=== PATIENT | male | born 2000 | race Caucasian/White ===

== ENCOUNTER 2025-09-10 12:42 | Emergency (ER) | payer BC, SELFPAY ==
[2025-09-10 12:42] VITALS: BMI 27.4
[2025-09-10 12:44] VITALS: BP 150/79
[2025-09-10 12:57] LABS: Hematocrit 39.4 % (39.0-52.0); Hemoglobin 13.7 g/dL (13.0-18.0); Mean Corp Hgb Conc. 34.8 g/dL (33.0-37.0); Mean Corpuscular Volume 86.0 fL (80.0-94.0); Nucleated Red Blood Cells % 0 % (-); Platelet Count 252 10^3/uL (130-400); Red Cell Dist. Width 11.9 % (11.5-14.5)
[2025-09-10 13:17] LABS: ALT (SGPT) 17 U/L (0-50); AST (SGOT) 20 U/L (17-59); Albumin 4.9 g/dl (3.5-5.0); Alkaline Phosphatase 46 U/L (38-126); Blood Urea Nitrogen 17 mg/dl (9-20); Calcium 9.4 mg/dl (8.4-10.2); Carbon Dioxide 23 mmol/L (22-30); Chloride 105 mmol/L (98-107); Glucose 94 mg/dl (70-99); Potassium 4.5 mmol/L (3.5-5.1); Sodium 138 mmol/L (135-145); Total Protein 8.1 g/dl (6.3-8.2); eGFR > 60.00
--- NOTE | 2025-09-10 13:38 | ED.GENMED ---
History of Present Illness
General
Chief Complaint: Skin Problem
Source: patient
Exam Limitations: none
Time Seen by Provider: 09/10/25 13:09
Nursing documentation reviewed up to this point in time: agreed with
History of Present Illness
History of Present Illness:
25-year-old male history of Crohn's previously treated at [facility] now [facility] he is on a biologic
Pain in his left buttock, for few days saw his GI doctor started on Augmentin
Given a prescription to get a CAT scan, which he has been unable to get scheduled symptoms are actually improving with the Augmentin, having mild pain, no drainage no fever no anterior abdominal pain has had what sounds like an abscess when he was a
child ultimately led to him being diagnosed with Crohn's at [facility]
Past History
Past History
ED Past Medical History: Other (Crohn's)
ED Past Surgical History: Other (Rectal abscess drain)
Social History
Tobacco: Non-smoker
Alcohol: None
Drug: None
Living: with family
Employment: Employed
Review of Systems
Review of Systems
All Other Systems: Not applicable
Constitutional: Denies fever or fatigue
Respiratory: Reports no symptoms
Cardiac: Reports no symptoms
ABD/GI: Denies abdominal pain, bloody stools or black stools
: Reports no symptoms
Hematologic/Lymphatic: Reports no symptoms
Psychiatric: Reports no symptoms
Phy Exam
Physical Exam
Physical Exam:
Physical Exam
General: no apparent distress, not acutely ill
Neck: No jaundice
Heart: s1/s2 regular rate and rhythm, no murmur. equal radial pulses.
Lungs: no acute respiratory distress. clear bilaterally
Abdomen: Soft nontender
Buttock: Quarter size area of mild tenderness and induration on the left buttock not involving the anus
Neuro: alert and oriented. no focal neurological deficits
Skin: no rash
Psychiatric: well kept. interactive and cooperative
Extremities: no edema.
Course
Orders/Labs/Results
Orders:
Orders
09/10/25 12:50
CMP [Comprehensive Metabolic Panel] Urgent
Complete Blood Count/With Diff Urgent
09/10/25 13:29
CT Abd/Pel (IV only)-DH only Urgent
Comment:
Reason For Exam: abscess left buttock IBD
Abnormal Lab Results
09/10/25
12:50
RBC 4.58 L 10^6/uL
(4.70-6.10)
09/10/25 12:50
09/10/25 12:50
Vital Signs
Initial and Last Documented VS:
Initial Vital Signs
Temp Pulse Resp BP Pulse Ox
98.5 F 94 18 150/79 99
09/10/25 12:44 09/10/25 12:44 09/10/25 12:44 09/10/25 12:44 09/10/25 12:44
Last Documented Vital Signs
Temp Pulse Resp BP Pulse Ox
98.5 F 94 18 150/79 99
09/10/25 12:44 09/10/25 12:44 09/10/25 12:44 09/10/25 12:44 09/10/25 13:41
MDM/Problems Addressed
Differential Diagnosis Includes:
Abscess fistula Crohn's
MDM/Problems Addressed:
Rectal abscess
Chronic conditions affecting care:
Crohn
Acute Exacerbation and/or Progression of Chronic Illness:
Crohn's
*Radiology
Radiology exam reviewed: radiology read reviewed
*Pulse Oximetry
SaO2: 99
Oxygen Mode of Delivery: Room air
Patient hypoxic: no
*Critical Care Note
Total Time (30-74mins, 75-104mins- exclusive of procedures): Not Applicable
Update Note
Update Note:
Symptoms are mild improving on antibiotic does have Crohn's will check CT scan labs
4:[address] report noted does not look like a drainable abscess will continue sitz bath's and antibiotics colorectal follow-up ER if worsening symptoms
ED Attending Note
-
Portions of this chart may have been created with voice recognition software.� Occasional wrong word or��sound alike� substitutions may have occurred due to the inherent limitations of voice recognition software.
Discharge Plan
Departure
Patient Disposition: Home (Routine Discharge)
Date of Disposition: 09/10/25
Time of Disposition: 16:41
Patient with high blood pressure during this ER visit?: No
Condition: Good
Discharge Problem:
Abscess of skin
Instructions: Skin Abscess, How to take a sitz bath
Referrals:
Shin Grimaldo MD [Family Provider, Family Practice]
Mikie Yu MD [Active, ColoRectal]
Activity Restrictions/Additional Instructions:
Sitz bath twice a day continue antibiotics follow-up with your primary care provider and colorectal surgery ER if worsening symptoms
Interventions
Interventions:
*Risk Screen - Suicide Last Done: 09/10/25 12:44
*General Assessment Last Done: 09/10/25 12:44
*Neglect/Abuse Screening Last Done: 09/10/25 12:44
*ED- Fall Risk Assessment Last Done: 09/10/25 12:44
*ED COVID-19 Vaccine History Last Done: 09/10/25 12:44
*ED Influenza Vaccine History Last Done: 09/10/25 12:44
ED-Skin Assessment Last Done: 09/10/25 13:53
Discharge Date and Time
Print Language: WELSH
[2025-09-10 16:48] VITALS: BP 133/75
== END 2025-09-10 16:49 | disposition home or self-care (01) ==
LOC: EMR 12:42
PROVIDERS: Student in an Organized Health Care Education/Training Program; EMERGENCY PHYSICIAN Emergency Medicine; FAMILY PHYSICIAN Family Medicine
DX: L02.31 Cutaneous abscess of buttock (principal); K50.90 Crohn's disease, unspecified, without complications
CPT/HCPCS: 99284; 74177; 80053; 85025; Q9967